=== PATIENT | male | born 1940 | race Caucasian/White ===

== ENCOUNTER 2017-02-13 11:03 | Emergency (ER) | payer SELFPAY ==
[2017-02-13 12:16] LABS: HEMOGLOBIN 15.4 gm/dl (14.0-17.5); RED BLOOD COUNT 4.84 M/UL (4.20-5.50); WHITE BLOOD COUNT 9.3 K/UL (4.5-11.0)
[2017-02-13 12:40] LABS: BUN/CREATININE RATIO 11 (0-10)
== END 2017-02-13 19:58 | disposition home or self-care (01) ==
LOC: ER1 11:03
PROVIDERS: Emergency Medicine
DX: R07.89 Other chest pain (principal); E11.9 Type 2 diabetes mellitus without complications; I10 Essential (primary) hypertension; Z88.0 Allergy status to penicillin; V89.2XXA Person injured in unspecified motor-vehicle accident, traffic, initial encounter
CPT/HCPCS: 36415; 71010; 71250; 80053; 82550; 82553; 83874; 83880; 84484; 85025; 90471; 90715; 93005; 99285